=== PATIENT | female | born 1945 | race Caucasian/White ===

== ENCOUNTER 2025-02-16 14:28 | Emergency (ER) | payer MEDICARE, SELFPAY ==
[2025-02-16 14:34] VITALS: BP 136/73; PULSE 73; RESP 18; TEMP 36.9; O2SAT 97
[2025-02-16 15:15] VITALS: BMI 33.8
--- NOTE | 2025-02-16 16:01 | PD.EDFALL ---
ED Fall Injury RME/HPI General Chief Complaint: Fall Stated Complaint: FALL Time Seen by Provider: 02/16/25 15:56 Arrival date/time: 02/16/25 14:28 Limitations: no limitations RME / HPI RME / HPI Narrative: 79 year old female with history of thrombocytosis (followed at the [facility]), hypertension, diabetes presents to the ED BIBA from home for evaluation after ground level mechanical fall today. States she was in her kitchen walking to the pantry when she tripped over her own foot that caused her to fall. States she struck the back of her head and right shoulder on the door. No other injuries reported. No LOC. No neck pain. Related Data Home Medications ?Medication ?Instructions ?Recorded ?Confirmed anagrelide 0.5 mg capsule 0.5 mg PO Q12H 12/12/18 06/06/19 hydroxyurea 500 mg capsule 500 mg PO EVERYOTHERDAY 12/12/18 06/06/19 losartan 100 1 tab PO QDAY 12/12/18 06/06/19 mg-hydrochlorothiazide 25 mg tablet metoprolol succinate 50 mg 50 mg PO QDAY 12/12/18 06/06/19 tablet,extended release 24 hr pantoprazole 40 mg tablet,delayed 40 mg PO QDAY 12/12/18 06/06/19 release sertraline 100 mg tablet 100 mg PO QDAY 12/12/18 06/06/19 tramadol 50 mg tablet 50 mg PO Q6H PRN Pain 12/12/18 06/06/19 Previous Rx's ?Medication ?Instructions ?Recorded aspirin 325 mg tablet 325 mg PO QDAY #30 tabs 12/13/18 ibuprofen 400 mg tablet 400 mg PO TID PRN pain #60 tabs 02/16/25 Allergies Allergy/AdvReac Type Severity Reaction Status Date / Time clarithromycin Allergy Severe RASH Verified 06/06/19 15:20 hydrocodone Allergy Severe RASH Verified 06/06/19 15:20 enoxaparin Allergy Intermediate RASH Verified 06/06/19 15:20 codeine AdvReac Severe ABD PAIN Verified 06/06/19 15:20 SHELLFISH Allergy Unknown EYES SWELL Uncoded 06/06/19 15:20 Review of Systems Review of Systems Systems Reviewed: All systems reviewed, normal except as documented Past Medical History Past Medical History CARDIAC: Positive Hypertension MUSCULOSKELETAL: Positive Arthritis and Degenerative Joint Disease HEMATOLOGIC: Positive Blood Disorders PSYCHO/SOCIAL: Positive Anxiety Surgical History SURGICAL: Positive Tonsillectomy and Hysterectomy Social History SMOKING STATUS: Never smoker SUBSTANCE USE: does not use ED Exam General Limitations: Present no limitations General appearance: Present alert and other (appears to be in pain ) Head Head exam: Present atraumatic, normocephalic and normal inspection Eye Eye exam: Present normal appearance, PERRL and EOMI ENT ENT exam: Present normal exam, normal oropharynx and mucous membranes moist Neck Neck exam: Present normal inspection, full ROM and trachea midline Chest Chest inspection: Present normal inspection and symmetric chest wall rise Respiratory Respiratory exam: Present normal lung sounds bilaterally Cardiovascular Cardiovascular exam: Present regular rate, normal rhythm and normal heart sounds Abdominal Exam Abdominal exam: Present soft and normal bowel sounds Extremities Exam Extremities exam: Present other (guarding right arm, positive shoulder deformity with tenderness to palpation ) Back Exam Back exam: Present normal inspection and full ROM Neurological Exam Neurological exam: Present alert, oriented X3 and CN II-XII intact Psychiatric Psychiatric exam: Present normal affect and normal mood Skin Skin exam: Present warm, dry, intact and normal color Course Quality Measures none Orders Category Date Time Status Stock And Station Agent NOW Care 02/16/25 16:33 Active Continuous Pulse Oximetry NOW Care 02/16/25 16:33 Completed EKG (ED ONLY) *Do not use* NOW Care 02/16/25 16:33 Completed Insert IV NOW Care 02/16/25 16:33 Active sling [Splint / Immobilizer] STAT Care 02/16/25 18:[address] head/brain wo con Stat Exams 02/16/25 16:[address] pelvis wo con Stat Exams 02/16/25 16:59 Taken EKG (ED Only) Stat Exams 02/16/25 16:33 Draft XR chest 1V portable Stat Exams 02/16/25 16:33 Completed XR shoulder RT min 2V Stat Exams 02/16/25 16:56 Completed CBC Stat Lab 02/16/25 17:53 Completed Comprehensive Metabolic Panel Stat Lab 02/16/25 17:53 Completed Prothrombin Time with INR Stat Lab 02/16/25 17:53 Completed Troponin I Stat Lab 02/16/25 17:53 Completed Urinalysis Stat Lab 02/16/25 16:33 Ordered Morphine* Inj Med 02/16/25 16:58 Discontinued 4 mg IVP X1 ONE Morphine* Inj Med 02/16/25 18:29 Discontinued 4 mg IVP X1 ONE Ondansetron Inj [Zofran Inj] Med 02/16/25 16:58 Discontinued 4 mg IVP X1 ONE Ondansetron Inj [Zofran Inj] Med 02/16/25 18:29 Discontinued 4 mg IVP X1 ONE Sodium Chloride 0.9% 1000 ml [Ns] 1,000 ml Med 02/16/25 16:33 Active IV 100 mls/hr Oxygen Delivery NOW RT 02/16/25 16:33 Active Vital Signs Vital signs: Vital Signs Temperature 98.4 F 02/16/25 14:34 Pulse Rate 73 02/16/25 14:34 Respiratory Rate 18 02/16/25 14:34 Blood Pressure 136/73 H 02/16/25 14:34 Pulse Oximetry (%) 97 02/16/25 14:34 Oxygen Delivery Method Nasal Cannula 02/16/25 14:34 Fall MDM Narrative MDM Narrative:: Kamala Walker am scribing for and in the presence of Dr. Tan. 1800: Care signed out to Dr. Shelton pending CTs and final disposition. Patient data External records reviewed:: [facility] previous records and EMS form Clinical information provided by:: patient and EMS Social determinants that could affect healthcare access:: none Patient has the following chronic illnesses:: thrombocytosis (followed at the [facility]), hypertension, diabetes How is presenting disease/condition affected by chronic disease/condition?: exacerbated by Evaluation data The following diagnostics were reviewed and interpreted by me:: lab results, radiology exam(s) and EKG tracing(s) (EKG @ 18:01. NSR, rate 76, no STEMI. ) Lab and/or radiology exams considered but not ordered:: None Interpretation Summary: Ordering Physician: Tyler Tan MD Date of Service: 02/16/25 Procedure(s): XR chest 1V portable Accession Number(s): [id number] cc: Tyler Tan MD; Francisco Varma MD; Camille Alba MD~ EXAMINATION: AP chest single view TECHNIQUE: AP portable supine chest single view Date and time: February 16, 2025, 1725 hours INDICATIONS: Cough and shortness of breath beginning today. FINDINGS: Moderate enlargement left ventricle Moderate vascular congestion Mild elevation right hemidiaphragm Ectatic enlarged thoracic aorta No lobar pneumonia Lower cervical plate IMPRESSION: Moderate enlargement left ventricle Moderate vascular congestion Dictated By: Francisco Varma MD Signed By: <Electronically signed by Francisco Varma MD in [place]> 02/16/251749 Ordering Physician: Tyler Tan MD Date of Service: 02/16/25 Procedure(s): XR shoulder RT min 2V Accession Number(s): [id number] cc: Tyler Tan MD; Francisco Varma MD; Camille Alba MD~ Examination: Shoulder, right, 3 views Technique: Shoulder AP internal rotation, AP external rotation, Y view shoulder, 3 views Exam date and time : February 06, 2025, 1657 hours INDICATIONS: Ground-level fall today with injury to the shoulder, shoulder pain FINDINGS: Acute fracture, impacted right humeral neck, likely involving the greater tuberosity of the humeral head No definite shoulder dislocation Severe osteopenia IMPRESSION: Acute fractures humeral head and neck Dictated By: Francisco Varma MD Signed By: <Electronically signed by Francisco Varma MD in [place]> 02/16/25 175 Medications / Prescriptions Medications or Prescriptions considered but not ordered:: None Medication administrations:: Medication Administration History Sodium Chloride (Ns) 1,000 mls @ 100 mls/hr IV .Q10H ONE Stop: 02/17/25 02:32 Last Admin: 02/16/25 18:53 Dose: 100 mls/hr Documented By: SEA Discontinued Medications Morphine Sulfate (Morphine Sulf Inj 4 Mg/Ml Vial) 4 mg IVP X1 ONE Stop: 02/16/25 16:59 Last Admin: 02/16/25 17:02 Dose: 4 mg Documented By: SEA Morphine Sulfate (Morphine Sulf Inj 4 Mg/Ml Vial) 4 mg IVP X1 ONE Stop: 02/16/25 18:30 Last Admin: 02/16/25 18:43 Dose: 4 mg Documented By: DB Ondansetron HCl (Ondansetron Inj 2 Mg/Ml Inj 2 Ml) 4 mg IVP X1 ONE; Protocol Stop: 02/16/25 16:59 Last Admin: 02/16/25 17:04 Dose: 4 mg Documented By: SEA Ondansetron HCl (Ondansetron Inj 2 Mg/Ml Inj 2 Ml) 4 mg IVP X1 ONE; Protocol Stop: 02/16/25 18:30 Last Admin: 02/16/25 18:43 Dose: 4 mg Documented By: SEA See above Consultations Consultation(s) initiated? (list below): Yes Consultation #1 (Physician, Specialty, Details): I spoke with ortho Dr. Gray, will send images via secured text. States patient can follow up with ortho on outpatient basis. Time: 18:08 Diagnosis Fall Differential Diagnosis: syncope, dislocation of shoulder region and compression fracture Most likely diagnosis given after review of the tests above:: Closed fracture of shoulder Closed head injury Admission Indicated Admission indicated?: not indicated Explain why admission is indicated or not indicated:: Signed out pending images and final disposition. Admission Request Was there a request for admission?: No Disposition Plan Disposition Plan: other (specify) (Signed out to Dr. Shelton ) Discharge Plan Plan Patient Disposition: HOME (Self Care) Patient condition on transfer: Stable Prescriptions/Referrals Prescriptions/Med Rec: New ibuprofen 400 mg tablet 400 mg PO TID MDD 3 PRN (Reason: pain) Qty: 60 0RF No Action anagrelide 0.5 mg Capsule 0.5 mg PO Q12H Rx Instructions: every other day metoprolol succinate 50 mg Tablet Extended Release 24 Hr 50 mg PO QDAY sertraline 100 mg Tablet 100 mg PO QDAY losartan-hydrochlorothiazide 100-25 mg Tablet 1 tab PO QDAY pantoprazole 40 mg Tablet,Delayed Release (Dr/Ec) 40 mg PO QDAY tramadol 50 mg Tablet 50 mg PO Q6H PRN (Reason: Pain) hydroxyurea 500 mg Capsule 500 mg PO EVERYOTHERDAY aspirin 325 mg tablet 325 mg PO QDAY Qty: 30 0RF Referrals: Chata Sanches MD [Primary Care Provider, Internal Medicine] - In 1 week Problem List Clinical Impression: Closed fracture of shoulder, Closed head injury Patient/Caregiver Discharge Instructions Discharge Activity: activity as tolerated Education Materials: ED Head Injury (Adult), ED Fracture, Shoulder Additional Instructions: Follow up with your doctor in 1 day for Orthopedic referral. Take medications as directed. Print Language: Portuguese Stand Alone Forms: Petra Award Info., Patient Portal Info Letter
--- NOTE | 2025-02-16 16:33 | XR_ITS ---
EXAMINATION: AP chest single view TECHNIQUE: AP portable supine chest single view Date and time: February 16, 2025, 1725 hours INDICATIONS: Cough and shortness of breath beginning today. FINDINGS: Moderate enlargement left ventricle Moderate vascular congestion Mild elevation right hemidiaphragm Ectatic enlarged thoracic aorta No lobar pneumonia Lower cervical plate IMPRESSION: Moderate enlargement left ventricle Moderate vascular congestion
--- NOTE | 2025-02-16 16:33 | EKG_ITS ---
[facility] Test Date: 2025-02-16 Pat Name: JANIA LEO Department: Room: - Gender: Female Decal Decorator: : 1945 Requested By: Tyler Anderson Order Number: [id number] Reading MD: Tyler Anderson Measurements Intervals [place] Rate: 76 P: 35 MS: 188 QRS: -12 QRSD: 76 T: 0 QT: 230 QTc: 259 Interpretive Statements SINUS RHYTHM LOW QRS VOLTAGE IN PRECORDIAL LEADS [QRS DEFLECTION < 1.0 mV IN CHEST LEADS] POSSIBLE ANTERIOR MYOCARDIAL INFARCTION , PROBABLY OLD [30 ms Q WAVE IN V3/V4, OR R < 0.2 mV IN V4] No previous ECG available for comparison /store/S0/[id number].pdf
--- NOTE | 2025-02-16 16:33 | XR_ITS ---
Examination: CT brain head without contrast. 2-D sagittal coronal reconstructions Date and time of exam: February 16, 2025, 1853 hours Ground-level fall today, hit head, head pain CTDI: vol (mGy): 52.6 DLP: (mGycm): 1143 Technique: Multiple CT axial sections of the brain have been obtained, 5 mm slice thickness. Contrast has not been administered. 2-D sagittal, coronal reconstructions have been obtained Low dose protocols were performed. One or more of the following dose reduction techniques were used; automated exposure control, adjustment of the mA and/or KV according to patient size, use of iterative reconstruction technique. Findings: No significant ventricular enlargement. Intra-axial or extra-axial hemorrhage density is not seen. No mass effect or midline shift Basal cisterns are not remarkable. Fourth ventricle is midline. Cranial vault intact. Impression: Negative for acute hemorrhage, mass effect or midline shift
--- NOTE | 2025-02-16 16:56 | XR_ITS ---
Examination: Shoulder, right, 3 views Technique: Shoulder AP internal rotation, AP external rotation, Y view shoulder, 3 views Exam date and time : February 06, 2025, 1657 hours INDICATIONS: Ground-level fall today with injury to the shoulder, shoulder pain FINDINGS: Acute fracture, impacted right humeral neck, likely involving the greater tuberosity of the humeral head No definite shoulder dislocation Severe osteopenia IMPRESSION: Acute fractures humeral head and neck
--- NOTE | 2025-02-16 16:59 | XR_ITS ---
Examination: CT pelvis without intravenous contrast. 2-D sagittal and coronal reconstructions. Date and time of exam: February 16, 2025, 1914 hours INDICATIONS: Patient fell today with injury to the hips, hip pain CTDI: vol (mGy) : 11.71 DLP: (mGycm) : 463 Technique: Multiple 3 mm axial sections of the pelvis have been obtained with the 64 slice high resolution scanner. 2-D sagittal and coronal reconstructions. Low dose protocols were performed. One or more of the following dose reduction techniques were used; automated exposure control, adjustment of the mA and/or KV according to patient size, use of iterative reconstruction technique. Findings: No pelvic hematoma Urinary bladder intact Absent uterus Severe osteopenia Sacral segments intact Iliac bones acetabular regions anterior rami intact No right or left hip fracture or dislocation IMPRESSION: No acute hip or pelvic fracture
[2025-02-16] MEDS: MORPHINE SULF INJ 4 MG/ML VIAL IVP ×2 (17:02→18:43)
[2025-02-16] MEDS: ONDANSETRON INJ 2 MG/ML INJ 2 ML 4 MG IVP ×2 (17:04→18:43)
[2025-02-16 17:07] VITALS: PULSE 79
[2025-02-16 18:11] LABS: Basophils # (Auto) 0.1 Thou/mm3 (0.0-0.2); Basophils % (Auto) 1 % (0-2.5); Eosinophils # (Auto) 0.2 Thou/mm3 (0.0-0.5); Eosinophils % (Auto) 1 % (0-10); Hematocrit 39.7 % (36.0-46.0); Hemoglobin 13.0 g/dL (12.0-16.0); Immature Granulocytes Auto 0.05 Thou/mm3 (0.00-0.00); Lymphocytes # (Auto) 1.6 Thou/mm3 (1.0-4.8); Lymphocytes % (Auto) 13 % (10-50); Mean Corpuscular HGB Conc 32.7 g/dl (31.0-37.0); Mean Corpuscular Hemoglobin 30.2 pg (25.0-35.0); Mean Corpuscular Volume 92 fL (80-100); Monocytes # (Auto) 0.7 Thou/mm3 (0.0-0.8); Monocytes % (Auto) 6 % (0-12); Neutrophils # (Auto) 9.5 Thou/mm3 (1.8-7.7); Neutrophils % (Auto) 79 % (37-80); Nucleated Red Blood Cell # 0.00 Thou/mm3 (0.00-0.00); Nucleated Red Blood Cell % 0 /100 WBC (0); Platelet Count 410 Thou/mm3 (140-440); RDW Standard Deviation 46.1 fL (36.4-46.3); Red Blood Count 4.31 Miln/mm3 (4.00-5.20); White Blood Count 12.0 Thou/mm3 (3.6-11.0)
[2025-02-16 18:23] LABS: INR 1.1 (0.9-1.3); Prothrombin Time 11.9 Seconds (9.0-12.2)
[2025-02-16 18:27] VITALS: BP 153/99; PULSE 77; RESP 15; TEMP 36.8; O2SAT 95
[2025-02-16 18:30] LABS: Alanine Aminotransferase 36 U/L (10-49); Albumin, Serum 4.4 gm/dL (3.4-4.8); Anion Gap 12 (7-16); Aspartate Amino Transferase 30 U/L (0-34); BUN/Creatinine Ratio 18 Ratio (12-20); Bilirubin,Total 0.4 mg/dL (0.3-1.2); Blood Urea Nitrogen 14 mg/dL (9-23); Calcium 8.9 mg/dL (8.3-10.6); Calcium (Corrected) 8.9 mg/dL (8.5-10.1); Carbon Dioxide 27.9 mMol/L (20.0-31.0); Chloride 102 mMol/L (98-107); Creatinine (Component) 0.8 mg/dL (0.6-1.3); Estimated Creatinine Clearance 57.3 mL/min (>60); Glucose 113 mg/dL (74-106); Osmolality,Calculated 284 (275-295); Potassium 4.0 mMol/L (3.4-5.1); Sodium 142 mMol/L (136-145); Total Protein 6.4 gm/dL (5.7-8.2); Troponin I < 0.002 ng/mL (0.0-0.045); eGFR > 60 See Note
[2025-02-16 18:31] LABS: Albumin/Globulin Ratio 2.2 (1.2-2.2); Alkaline Phosphatase 59 U/L (46-116); Globulin 2.0 gm/dL (2.3-3.5)
[2025-02-16] MEDS: SODIUM CHLORIDE 0.9% 1000 ML 1,000 ML 100 ML IV (18:53)
--- NOTE | 2025-02-16 19:35 | EDNOTE_ITS ---
Emergency Room Addendum Addendum Narrative: 190: Care assumed from Dr. Tan, the previous shift emergency physician. Past medical, surgical, social and family history reviewed. Vitals and home medications reviewed. Results and treatment plan discussed. I will assume the care of the patient at this time and will follow the patient, pending work-up. Please refer to the emergency department record for history and examination from initial visit. RADIOLOGY RESULTS: [place] Report Signed Patient: JANIA LEO [facility]. Record#: [id number] Birthdate: 1945 Age/Sex: 79 / F Location: [facility] Attending Dr: Ordering Physician: Tyler Tan MD Date of Service: 02/16/25 Procedure(s): CT head/brain wo con Accession Number(s): [id number] cc: Tyler Tan MD; Francisco Varma MD; Camille Alba MD~ Examination: CT brain head without contrast. 2-D sagittal coronal reconstructions Date and time of exam: February 16, 2025, 1853 hours Ground-level fall today, hit head, head pain CTDI: vol (mGy): 52.6 DLP: (mGycm): 1143 Technique: Multiple CT axial sections of the brain have been obtained, 5 mm slice thickness. Contrast has not been administered. 2-D sagittal, coronal reconstructions have been obtained Low dose protocols were performed. One or more of the following dose reduction techniques were used; automated exposure control, adjustment of the mA and/or KV according to patient size, use of iterative reconstruction technique. Findings: No significant ventricular enlargement. Intra-axial or extra-axial hemorrhage density is not seen. No mass effect or midline shift Basal cisterns are not remarkable. Fourth ventricle is midline. Cranial vault intact. Impression: Negative for acute hemorrhage, mass effect or midline shift Dictated By: Francisco Varma MD Signed By: <Electronically signed by Francisco Varma MD in [place] 02/16/252020 [facility] Report Signed Patient: JANIA LEO [facility]. Record#: [id number] Birthdate: 1945 Age/Sex: 79 / F Location: [facility] Attending Dr: Ordering Physician: Tyler Tan MD Date of Service: 02/16/25 Procedure(s): CT pelvis wo con Accession Number(s): [id number] cc: Tyler Tan MD; Francisco Varma MD; Camille Alba MD~ Examination: CT pelvis without intravenous contrast. 2-D sagittal and coronal reconstructions. Date and time of exam: February 16, 2025, 1914 hours INDICATIONS: Patient fell today with injury to the hips, hip pain CTDI: vol (mGy) : 11.71 DLP: (mGycm) : 463 Technique: Multiple 3 mm axial sections of the pelvis have been obtained with the 64 slice high resolution scanner. 2-D sagittal and coronal reconstructions. Low dose protocols were performed. One or more of the following dose reduction techniques were used; automated exposure control, adjustment of the mA and/or KV according to patient size, use of iterative reconstruction technique. Findings: No pelvic hematoma Urinary bladder intact Absent uterus Severe osteopenia Sacral segments intact Iliac bones acetabular regions anterior rami intact No right or left hip fracture or dislocation IMPRESSION: No acute hip or pelvic fracture Dictated By: Francisco Varma MD Signed By: <Electronically signed by Francisco Varma MD in [place]> 02/16/252023
[2025-02-16 19:54] VITALS: BP 142/69; PULSE 79; PULSE 81; RESP 18; RESP 93; O2SAT 93
== END 2025-02-16 21:40 | disposition home or self-care (01) ==
PROVIDERS: Emergency Provider Family Medicine; PCP Internal Medicine
DX: S09.90XA Unspecified injury of head, initial encounter (principal); S42.291A Other displaced fracture of upper end of right humerus, initial encounter for closed fracture; I11.9 Hypertensive heart disease without heart failure; W01.198A Fall on same level from slipping, tripping and stumbling with subsequent striking against other object, initial encounter; Y92.000 Kitchen of unspecified non-institutional (private) residence as the place of occurrence of the external cause
CPT/HCPCS: 36415; 70450; 71045; 72192; 73030; 80053; 81001; 84484; 85025; 85610; 93005; 96374; 96375; 96376; 99285; J2270; J2405; J7030